=== PATIENT | male | born 1950 | race African-American/Black ===

== ENCOUNTER 2020-03-02 08:00 | Outpatient (RCR) | payer MEDICARE, SELFPAY ==
--- NOTE | 2019-12-13 08:49 | PTOPEVAL ---
Thank you for referring Fam Bell to [facility]. Please review, sign, date and return this plan of care CHRIS. Pt seen for therapy evaluation due to back pain with sciatica pain. He demonstrates decreased trunk motion, LE and trunk muscle weakness and decreased tolerance with daily activities due to pain. Cont PT 2x/wk x 4-6 wk. I agree with and certify that the following plan of care is medically necessary. Referring Physician Date Attending Provider: Huan Bowman, PT evaluation *PT Outpatient Evaluation Start: 12/13/19 07:56 Freq: Status: Active Protocol: Document 12/13/19 07:57 CAP (Rec: 12/13/19 08:41 CAP [id number]) Therapy Assessment Status Assessment Status Assessment Status Evaluation Outpatient Past Medical History Past Medical History Source of Past Medical History Patient Neurological History Hx Neurological Disorders No Significant History Cardiovascular History Hx Hypertension Yes Respiratory History Hx Pneumonia Yes: 10 years ago Gastrointestinal History Hx Gastrointestinal Disorders No Significant History Genitourinary History Hx Genitourinary Disorders No Significant History Musculoskeletal History Hx Arthritis Yes: low back Hx Back Pain Yes Endocrine History Hx Diabetes Yes: managed with medication Evaluation Information Problem Diagnosis sciatica right side Onset 3 months Cause unknown Additional Evaluation Detail He was given naproxen and gabapenin for the pain. Subjective Information Reports he was wearing a tight Query Text:As Reported By Patient/ pair of shoes and thinks he Family sprained his ankle then had increased right leg and back pain. He reports tingling of his toes with standing. He reports increased pain with standing activties and walking longer distances. He has improved pain with sitting. He will at times have trouble sleeping due to pain. He will sometimes have to sit with ADL 's. He is limited with walking. He walking 3-4 x/wk prior to this. 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 Diagnostic Tests X-Rays For This Problem Yes Prior Level of Function Activity Level (Last 3 Months) Occupation drives a t
--- NOTE | 2020-01-27 09:21 | PCPTNOTE ---
Patient did not show up for scheduled appointment this date.Called pt who states he forgot about his appointment today. He rescheduled for next Thursday.
--- NOTE | 2020-02-03 08:50 | PTOPEVAL ---
Thank you for referring Fam Bell to [facility].? The patient is scheduled to be seen for therapy? 1 x/week for 4 weeks. Please review, sign, date and return this plan of care CHRIS. I agree with and certify that the following plan of care is medically necessary. Referring Physician Date Attending Provider: Huan Bowman, Physical Therapy Progress Note *PT Outpatient Evaluation Start: 12/13/19 07:56 Freq: Status: Active Protocol: Document 02/03/20 07:57 SAFIA (Rec: 02/03/20 08:42 CAP [email or web address]) Therapy Assessment Status Assessment Status Assessment Status Re-evaluation Evaluation Information Problem Diagnosis sciatica right side Onset 3 months Cause unknown Additional Evaluation Detail He was given naproxen and gabapenin for the pain. Subjective Information Reports he hurts his foot a Query Text:As Reported By Patient/ few weeks ago by tearing the Family toe nail off when he was carrying a love seat. He has not been performing his back HEP due to foot pain. He reports improved tingling of his toes with standing. He reports improved pain with standing activties and walking longer distances. He is sleeping 4-5 hours a night, but is not waking due to pain. He is not using ice or heat for his leg pain, but sits to rest the leg. 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 Pain Assessment Timing of Pain Assessment Timing of Pain Assessment Re-assessment Pain Scale Pain Scale Used Numeric (1 - 10) Self Report Pain Assessment Right Posterior Leg(s) Reported Pain Level 1 Pain Description Aching Pain Frequency Intermittent Lowest Pain Intensity 0 Greatest Pain Intensity 7 Pain Aggravating Factors Walking,Weight Bearing/ Standing Pain Score Pain Score 1: Self Report Cervical and Lumbar ROM Lumbar ROM Lumbar Flexion Active Mid [place],Ankle Query Text:Hands to: Lateral Flexion lateral knee joint line Query Text:Active Hands to: Lumbar ROM WNL Lumbar Comments no pain with trunk motion Cervical and Lumbar
--- NOTE | 2020-03-02 08:46 | PTOPEVAL ---
Thank you for referring Fam Bell to [facility].? Pt demonstrates no changes in LE/trunk strength, decline with trunk motion and increased right LE symptoms since last update. He reports decreased function on the Modified Oswestry. He demonstrates poor compliance with his HEP. Recommend pt to f/u with his MD due to increased symptoms. Limited progress with therapy goals. Please review, sign, date and return this plan of care CHRIS. I agree with and certify that the following plan of care is medically necessary. Referring Physician Date Attending Provider: Huan Bowman, *PT Outpatient Evaluation Start: 12/13/19 07:56 Freq: Status: Active Protocol: Document 03/02/20 07:58 SAFIA (Rec: 03/02/20 08:45 [facility] [place] [id number]) Therapy Assessment Status Assessment Status Assessment Status Re-evaluation/Discharge Note Evaluation Information Problem Diagnosis sciatica right side Onset 3 months Cause unknown Additional Evaluation Detail He was given naproxen and gabapenin for the pain. Subjective Information Reports he twisted his knee Query Text:As Reported By Patient/ getting out of the truck the Family other week. States his toe is feeling better. He is performing some of his exercises everyday, but not all of them. He denies any tingling of his toes with standing. He cont to report limitations with standing. He is limited with walking due to right back/leg pain. [facility] on. He is sleeping 4-5 hours a night, but is not waking due to pain. He is not using ice or heat for his pain. He will soak in epson salt. 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 Pain Assessment Timing of Pain Assessment Timing of Pain Assessment Re-assessment Pain Scale Pain Scale Used Numeric (1 - 10) Self Report Pain Assessment Right Posterior Leg(s) Reported Pain Level 2 Pain Description Aching,Soreness Pain Frequency Chronic,Continuous Lowest Pain Intensity 1 Greatest Pain Intensity 9 Pain Aggravating Factors Walking,Weight Bearing/
== END 2020-03-02 12:21 | disposition home or self-care (01) ==
LOC: ANHPT 08:00
PROVIDERS: PCP Family Medicine; Visit Provider Family Medicine
DX: M54.31 Sciatica, right side (principal)
CPT/HCPCS: 97110; 97112; 97161